=== PATIENT | male | born 1965 | race Caucasian/White ===

== ENCOUNTER → 2017-02-23 | Emergency (ER) | payer SELFPAY ==
[~2017-02-23] MED LIST: AMOXICILLIN500 MG PO; ANAPROX DS550 MG PO; ASPIRIN CHILDRE81 MG PO; CHOLESTEROL MED; CLARITIN10 MG PO; FLONASE ALLERG9.9 ML NAS; HYDR12.5C PO; HYDROCODONE BIT1 T11 PO; IBUPROFEN 30 M800 MG PO; KEFLEX500 MG PO; MEDROL DOSEPAK4 MG PO; METOPROLOL SR50 MG PO; MOTRIN800 MG PO; NKHM; Nizoral 2%15 GM PO; PREDNISONE10 M1 PO; PREDNISONE10 MG PO; PROVENTIL0.09 MG/AC IH; ROBITUSSIN AC 110 ML PO; SKELAXIN800 MG PO; TRAMADOL HYDROC50 MG PO; ULTRAM50 MG PO; ZITHROMAX Z PA250 MG PO
== END ==
LOC: ED 23:00
DX: S09.90XA Unspecified injury of head, initial encounter (principal); Z88.8 Allergy status to other drugs, medicaments and biological substances; Z79.899 Other long term (current) drug therapy; Z79.82 Long term (current) use of aspirin; X58.XXXA Exposure to other specified factors, initial encounter; Y93.89 Activity, other specified; Y92.89 Other specified places as the place of occurrence of the external cause; Y99.9 Unspecified external cause status

== ENCOUNTER 2017-05-25 20:43 | Emergency (ER) | payer OTHER, BC ==
[~2017-05-25] VITALS: Ht 172.7 cm; Wt 63.5 kg
== END 2017-05-25 22:21 | disposition home or self-care (01) ==
LOC: ED 20:43
DX: S40.022A Contusion of left upper arm, initial encounter (principal); F17.200 Nicotine dependence, unspecified, uncomplicated; Z79.82 Long term (current) use of aspirin; Z79.899 Other long term (current) drug therapy; Z88.8 Allergy status to other drugs, medicaments and biological substances; W22.8XXA Striking against or struck by other objects, initial encounter; Y93.89 Activity, other specified; Y92.89 Other specified places as the place of occurrence of the external cause; Y99.8 Other external cause status

== ENCOUNTER → 2017-06-19 | Outpatient (CLI) | payer BC ==
[2017-06-19 12:00] LABS: BASO # 0.1 10*3/uL (0.0-0.1); BASO % 0.7 % (0.0-1.0); EOS # 0.3 10*3/uL (0.0-0.4); EOS % 2.8 % (1.0-4.0); HEMATOCRIT 48.2 % (42.0-52.0); HEMOGLOBIN 16.9 g/dl (14.0-18.0); LYMPH # 2.2 10*3/uL (1.3-4.4); LYMPH % 17.8 % (27.0-41.0); MEAN CELL VOLUME 88.6 fl (80.0-94.0); MEAN CORPUSCULAR HGB 31.1 pg (27.0-31.0); MEAN CORPUSCULAR HGB CONC 35.1 g/dl (33.0-37.0); MEAN PLATELET VOLUME 9.4 fl (9.6-12.3); MONO # 0.8 10*3/uL (0.1-1.0); MONO % 6.7 % (3.0-9.0); NEUT # 8.8 10*3/uL (2.3-7.9); NEUT % 71.6 % (47.0-73.0); PLATELET COUNT AUTOMATED 218 10*3/uL (130-400); RED BLOOD COUNT 5.44 10*6/uL (4.50-5.90); RED CELL DISTRI WIDTH 12.4 % (0-14.5); WHITE BLOOD COUNT 12.3 10*3/uL (4.8-10.8)
[2017-06-19 12:29] LABS: ALBUMIN 4.1 gm/dl (3.1-4.5); ALKALINE PHOSPHATASE 101 U/L (45-117); BUN 14 mg/dl (7-24); CHLORIDE 100 mmol/L (98-107); CHOLESTEROL 198 mg/dL (<200); CREATININE 0.92 mg/dL (0.70-1.30); HDL CHOLESTEROL 43 mg/dl (40-60); LDL CHOLESTEROL 137 mg/dL (9-159); POTASSIUM 3.8 mmol/L (3.5-5.1); SGOT/AST 17 IU/L (3-35); SGPT/ALT 18 U/L (12-78); SODIUM 135 mmol/L (136-145); TOTAL PROTEIN 8.3 gm/dL (6.4-8.2); TRIGLYCERIDES 90 mg/dl (<150); VLDL CHOLESTEROL 18 mg/dL (6-40)
== END | disposition home or self-care (01) ==
LOC: LAB 00:29 → RESCLI 00:29
PROVIDERS: Internal Medicine Hospice and Palliative Medicine
DX: I10 Essential (primary) hypertension (principal); E78.5 Hyperlipidemia, unspecified

== ENCOUNTER 2017-08-06 23:33 | Emergency (ER) | payer BC ==
[~2017-08-06] VITALS: Ht 170.1 cm; Wt 52.6 kg
[2017-08-06] MEDS ORDERED: AVASTIN25 MG/1 ML IV (23:46)
[2017-08-07] MEDS ORDERED: NAPROSYN500 MG PO
[2017-08-07] MEDS ORDERED: IBU800 MG PO (01:50)
== END 2017-08-07 01:37 | disposition home or self-care (01) ==
LOC: ED 23:33
DX: R07.81 Pleurodynia (principal); F17.200 Nicotine dependence, unspecified, uncomplicated; G43.909 Migraine, unspecified, not intractable, without status migrainosus; Z88.8 Allergy status to other drugs, medicaments and biological substances

== ENCOUNTER 2018-01-12 19:39 | Emergency (ER) | payer BC ==
[~2018-01-12] VITALS: Ht 172.7 cm; Wt 56.7 kg
[~2018-01-12 19:39] MED LIST changes: +AVASTIN25 MG/1 ML IV; +IBU800 MG PO; +NAPROSYN500 MG PO
[2018-01-12 20:31] LABS: BASO # 0.1 10*3/uL (0.0-0.1); BASO % 0.8 % (0.0-1.0); EOS # 0.3 10*3/uL (0.0-0.4); EOS % 2.8 % (1.0-4.0); HEMOGLOBIN 17.3 g/dl (14.0-18.0); LYMPH # 2.5 10*3/uL (1.3-4.4); LYMPH % 23.8 % (27.0-41.0); MEAN CELL VOLUME 87.6 fl (80.0-94.0); MEAN CORPUSCULAR HGB 30.3 pg (27.0-31.0); MEAN CORPUSCULAR HGB CONC 34.6 g/dl (33.0-37.0); MEAN PLATELET VOLUME 9.6 fl (9.6-12.3); MONO # 0.7 10*3/uL (0.1-1.0); MONO % 6.8 % (3.0-9.0); NEUT # 6.8 10*3/uL (2.3-7.9); NEUT % 65.3 % (47.0-73.0); PLATELET COUNT AUTOMATED 225 10*3/uL (130-400); RED BLOOD COUNT 5.71 10*6/uL (4.50-5.90); RED CELL DISTRI WIDTH 12.5 % (0-14.5); WHITE BLOOD COUNT 10.5 10*3/uL (4.8-10.8)
[2018-01-12 20:41] LABS: ACT PARTIAL THROMBO TIME 22.5 SECONDS (20.8-31.5)
[2018-01-12 20:48] LABS: ALBUMIN 4.1 gm/dl (3.1-4.5); ALKALINE PHOSPHATASE 101 U/L (45-117); BUN 15 mg/dl (7-24); CHLORIDE 102 mmol/L (98-107); CREATININE 0.99 mg/dL (0.70-1.30); POTASSIUM 3.6 mmol/L (3.5-5.1); SGOT/AST 20 IU/L (3-35); SGPT/ALT 21 U/L (12-78); SODIUM 137 mmol/L (136-145); TOTAL PROTEIN 7.9 gm/dL (6.4-8.2)
[2018-01-12 20:49] LABS: ETHYL ALCOHOL < 3.0 mg/dl (<3); TROPONIN I < 0.015 ng/ml (<0.045)
[2018-01-12 20:58] LABS: BILIRUBIN NEGATIVE (NEGATIVE); BLOOD NEGATIVE (NEGATIVE); CLARITY CLEAR (CLEAR); COLOR YELLOW (YELLOW); GLUCOSE NEGATIVE (NEGATIVE); KETONE NEGATIVE (NEGATIVE); LEUKO ESTERASE NEGATIVE (NEGATIVE); NITRITE NEGATIVE (NEGATIVE); PH 5.5 (5.0-9.0); SPECIFIC GRAVITY <= 1.005 (1.005-1.030); UROBILINOGEN 0.2 E.U./dl (0.2-1.0)
[2018-01-12 21:07] LABS: HYALINE CAST 0-2
[2018-01-12 21:08] LABS: BACTERIA TRACE; EPITHELIAL CELLS 0-2; URINE AMPHETAMINES < 1000 (1000ng/ml); URINE BARBITURATES < 200 (200ng/ml); URINE BENZODIAZEPINES < 200 (200ng/ml); URINE CANNABINOIDS (THC) < 50 (50ng/ml); URINE COCAINE < 300 (300ng/ml); URINE METHADONE < 300 (300ng/ml); URINE OPIATES < 300 (300ng/ml)
[2018-01-12 21:09] LABS: URINE PHENCYCLIDINE < 25 (25ng/ml)
[2018-01-12] MEDS ORDERED: AUGMENTIN 875875 MG PO (21:24)
== END 2018-01-12 21:35 | disposition home or self-care (01) ==
LOC: ED 19:39
PROVIDERS: Emergency Medicine Emergency Medical Services
DX: G45.9 Transient cerebral ischemic attack, unspecified (principal); Z88.8 Allergy status to other drugs, medicaments and biological substances; Z79.899 Other long term (current) drug therapy; Z86.73 Personal history of transient ischemic attack (TIA), and cerebral infarction without residual deficits

== ENCOUNTER → 2018-01-14 | Outpatient (CLI) | payer BC ==
[~2018-01-14] MED LIST changes: +AUGMENTIN 875875 MG PO
== END | disposition home or self-care (01) ==
LOC: RESCLI 02:42
DX: I10 Essential (primary) hypertension (principal); R63.6 Underweight; I63.50 Cerebral infarction due to unspecified occlusion or stenosis of unspecified cerebral artery; K21.9 Gastro-esophageal reflux disease without esophagitis; F17.200 Nicotine dependence, unspecified, uncomplicated; Z71.6 Tobacco abuse counseling

== ENCOUNTER → 2018-04-15 | Outpatient (CLI) | payer BC | LOC: RESCLI 03:21 | DX: E78.5 Hyperlipidemia, unspecified (principal); K21.9 Gastro-esophageal reflux disease without esophagitis; E78.00 Pure hypercholesterolemia, unspecified; R63.6 Underweight; R09.81 Nasal congestion; Q15.9 Congenital malformation of eye, unspecified; F17.200 Nicotine dependence, unspecified, uncomplicated; Z53.20 Procedure and treatment not carried out because of patient's decision for unspecified reasons; Z71.6 Tobacco abuse counseling; Z88.8 Allergy status to other drugs, medicaments and biological substances ==

== ENCOUNTER → 2018-07-17 | Outpatient (CLI) | payer BC | END | disposition home or self-care (01) | LOC: RESCLI 03:30 | DX: E78.5 Hyperlipidemia, unspecified (principal); J32.0 Chronic maxillary sinusitis; F17.200 Nicotine dependence, unspecified, uncomplicated; R63.6 Underweight; R09.81 Nasal congestion; Z71.6 Tobacco abuse counseling; Z88.8 Allergy status to other drugs, medicaments and biological substances; Z53.20 Procedure and treatment not carried out because of patient's decision for unspecified reasons ==

== ENCOUNTER → 2018-07-29 | Outpatient (CLI) | payer BC | END | disposition home or self-care (01) | LOC: RESCLI 03:21 | DX: Z00.01 Encounter for general adult medical examination with abnormal findings (principal); J32.9 Chronic sinusitis, unspecified; E78.5 Hyperlipidemia, unspecified; I63.9 Cerebral infarction, unspecified; F17.200 Nicotine dependence, unspecified, uncomplicated; R63.6 Underweight; Z79.82 Long term (current) use of aspirin; Z79.899 Other long term (current) drug therapy; Z88.8 Allergy status to other drugs, medicaments and biological substances ==

== ENCOUNTER 2018-10-28 15:03 | Inpatient (IN) | payer BC ==
[~2018-10-28] VITALS: Ht 170.1 cm; Wt 59.7 kg
--- NOTE | ~2018-10-28 | CON ---
[place], [place] REPORT OF CONSULTATION NAME: LEROY LEWIS UNIT #: [id number] ROOM: 528 DOCTOR: IMER LIU MD BIRTHDATE: [birth year] DOS: 10/29/2018 PULMONARY CONSULTATION, EVALUATION AND MANAGEMENT REASON FOR CONSULTATION: The consultation requested for the assessment of pulmonary nodule. The patient has abnormal CT scan of the chest finding and shortness of breath and other symptoms. HISTORY OF PRESENT ILLNESS: A 53-year-old male per patient was admitted under the hospitalist service on 10/28/2017. The consultation today 10/29/2017. The patient came into the Emergency Room, the patient has reporting symptoms of getting progressive shortness breath for the past 3 days with increased cough with the sputum expectoration described yellowish mucus at time. He has been also complaining of symptoms of wheezing as well. Denies symptoms of chest pain. There were no symptoms of hemoptysis. The patient has been noted gradually worsened requiring assessment in the Emergency Room where I have been assessed and admitted to the hospital for medical management, currently noted acute pneumonia on the chest x-ray and exacerbation of COPD. REVIEW OF SYSTEMS: CONSTITUTIONAL: Fatigue and tiredness reported. Denies symptoms of fever or chills. EYES: Denies burning, redness, or tenderness. EARS, NOSE, AND THROAT: Denies sore throat, hoarseness, epistaxis, or earache. CARDIOVASCULAR: No anginal pain, edema, or pain in lower extremities or palpitations. GASTROINTESTINAL: Dysphagia, nausea, vomiting, diarrhea, abdominal pain, hematemesis, melena, hematochezia. Stated that he has low BMI and has been told by several doctors in the last few years that he needs to gain some weight. GENITOURINARY: No dysuria, suprapubic pain, hematuria. MUSCULOSKELETAL: Denies any joint pain deformities or redness. SKIN: Denied lesions or rashes. CENTRAL NERVOUS SYSTEM: Dizziness, diplopia, headache or syncopal episodes. Remaining systems were reviewed. They were noted all negative. PAST MEDICAL HISTORY: 1. Essential hypertension. 2. History of past stroke without residual deficit. 3. Hyperlipidemia. 4. Migrainous headache. 5. TIA. 6. Nicotine dependence. SOCIAL HISTORY: The patient reported he lives at home. 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 Denies any history of alcohol or illicit drugs. Tobacco use was known for this patient at a younger age, a pack of cigarettes per day and in the past 3 months decreased this tobacco use to about half a pack of cigarettes per day. He is and has 3 children. [place], [place] REPORT OF CONSULTATION NAME: LEROY LEWIS UNIT #: [id number] ROOM: 528 DOCTOR: ROCHELLE TIWARI MD,IMER BIRTHDATE: [birth year] FAMILY HISTORY: The patient not remembered by the patient. HOME MEDICATIONS: Recent use of Augmentin, aspirin. The patient was also listed as a medication Avastin, which has not been taken by the patient most likely accidentally. DRUG ALLERGIES: NOTED ALLERGY TO THE LISINOPRIL for patient causing weakness of the lower extremities. PHYSICAL EXAMINATION: GENERAL: This is a 53-year-old white male who has been currently noted awake and alert this morning of assessment. Height of 5 feet 7 inches, weight of 131 pounds, BMI 20.6, does not show any acute distress this morning. VITAL SIGNS: Normal temperature, respiratory rate 18-20, heart rate of 114-109. Blood pressure 102/60 to 137/79. Pulse oxygen saturation was recorded 2 liters nasal cannula 96% saturation. HEENT: Examination shows head was atraumatic. Eyes nonicterus. NECK: Supple. CARDIOVASCULAR: S1, S2 audible. LUNGS: General reduction in the breath sounds. The patient noted without any wheezing or crackles. ABDOMEN: Soft, nontender and flat. EXTREMITIES: No edema. MUSCULOSKELETAL: Cord deformity. SKIN: Noted some dryness of the skin. CENTRAL NERVOUS SYSTEM: Cranial nerves 2-12 intact. There were no focal deficits. LABORATORY DATA: The patient's CMP that was done yesterday noted normal BUN and creatinine, glucose 110. CBC yesterday, WBC count 12.6, hemoglobin and hematocrit normal, platelet count were normal. The BMP this morning, glucose 174, BUN and creatinine was normal. Phosphorus 2.3, which was low. CBC this morning was 11.1, platelet count were normal. Chest x-ray shows hyperinflated lung changes of COPD, increased interstitial marking and basilar infiltration was suspected. CT scan of the chest that was done yesterday, patient's CT protocol does not show any evidence of pulmonary embolism. Significant normal finding noted. Personal review of the CT scan of the chest shows basilar area of infiltration, which was noted in the lungs. An 8 mm nodule in the lateral subsegment of the right middle lobe was also noted close to the pleural surface. In addition to that, the patient noted with changes of some cystic lesions in combination of emphysema, predominance of centrilobular emphysema changes noted in the lower portion of the lungs. Haziness lungs were noted bilaterally, possibly interstitial lung disease would be considered as well. IMPRESSION: 1. The patient will be currently admitted to the hospital noted with acute bilateral lower lobe pneumonia. Question of aspiration. 2. Interstitial lung disease cannot be completely excluded with consideration of pulmonary Langerhans cell histiocytosis with the CT appearance. [place], [place] REPORT OF CONSULTATION NAME: LEROY LEWIS UNIT #: [id number] ROOM: 528 DOCTOR: IMER LIU MD BIRTHDATE: [birth year] 3. Basal emphysema, rule out alpha-1 antitrypsin deficiency as well. 4. The patient with chronic nicotine dependence as well. 5. Low BMI, which has been noted chronically. 6. Solitary pulmonary nodule, possibility of early lung malignancy remains in consideration. 7. History of long-term tobacco use. PLAN OF MANAGEMENT: The patient would be continued on oxygen supplementation, antibiotic, community-acquired aspiration. Nicotine supplementation to overcome nicotine withdrawal. Bronchodilator to be continued. No need of steroids at this time. If the patient develops increased wheezing or worsening, certainly the steroids could be added to the treatment. Follow up with the chest x-ray. Outpatient assessment for possibility of interstitial lung disease and also alpha-1 antitrypsin deficiency. Solitary nodule needs to be further assessed for this patient with close monitoring CT scan. Followup CT scan to be done in about 3 months' when the resolution of acute abnormality occurs for the lung nodule monitoring. Further care treatment changes will be made based on the progression of the illness. IMER BYRD MD CM:CONSTR:REPORT OF CONSULTATION 1310 10/29/18 1638 interface
--- NOTE | ~2018-10-28 | PR ---
[place], [place] PROGRESS NOTE NAME: LEROY LEWIS UNIT #: [id number] ROOM: 528 DOCTOR: ROCHELLE TIWARI MD,IMER BIRTHDATE: [birth year] DOS: 10/30/2018 SUBJECTIVE: He has reported reduction of the cough, but there was no sputum expectoration. Denies symptoms of chest pain, fever or chills. Continue antibiotic and bronchodilators. Denies symptoms of nausea, vomiting or any abdominal pain. OBJECTIVE: VITAL SIGNS: Normal temperature, respiratory rate 18, heart rate 98, and blood pressure 110/60. The pulse oxygen saturation on 2 liters nasal cannula 95% saturation. HEENT: Examination shows head was atraumatic. Eyes nonicterus. NECK: Supple. CARDIOVASCULAR: S1, S2 audible. LUNGS: General reduction in the breath sounds without any wheeze or crackles. ABDOMEN: Soft and nontender. Bowel sounds present. EXTREMITIES: No edema. IMPRESSION: The patient who has been currently noted with bilateral acute pneumonia with chronic obstructive pulmonary disease and nicotine dependence. PLAN OF MANAGEMENT: Repeat chest x-ray in the morning. Continue antibiotics, bronchodilator therapy, and plan of management. Depending upon the chest x-ray assessment for the patient improvement, discharge planning could be done. The patient was hoping for discharge today. IMER BYRD MD CM:PNTRANS [id number] IMER TIWARI MD 10/30/18 1220 interface
--- NOTE | ~2018-10-28 | PR ---
[place], [place] PROGRESS NOTE NAME: LEROY LEWIS UNIT #: [id number] ROOM: 528 DOCTOR: IMER LIU MD BIRTHDATE: [birth year] DOS: 10/31/2018 SUBJECTIVE: The patient was noted comfortable at this time without any acute distress. He has not been reporting any symptoms of shortness of breath this morning, wheezing. Denies symptoms of chest pain. He does have a cough with chest congestion without any sputum expectoration. OBJECTIVE: VITAL SIGNS: Normal temperature, respiratory rate 16, heart rate 106, blood pressure 140/67. Pulse oxygen saturation recorded as 91% saturation on room air. HEENT: Examination shows head was atraumatic. Eyes nonicterus. NECK: Supple. CARDIOVASCULAR: S1, S2 audible. LUNGS: The patient was noted without any wheezing or crackles at the present time. Breaths are noted mildly diminished bilaterally. ABDOMEN: Soft, flat, nontender. EXTREMITIES: No acute change. LABORATORY DATA: CBC: WBC count 14.8. Other CBC was normal. BMP was recorded as normal BUN and creatinine. Remaining electrolytes were normal. Chest x-ray done this morning was assessed and noted with pulmonary infiltration, noted changes of severe emphysema. IMPRESSION: 1. The patient with resolving acute pneumonia clinically at this time. 2. Pulmonary nodule noted on the CT scan chest. 3. Severe panlobular emphysema. PLAN OF THERAPY: Consideration for home discharge, oxygen sat prior to discharge, abstinence of tobacco use. Outpatient assessment in the office should be established for assessment of the pulmonary nodule, other pulmonary disease. The patient understands that and stated that he will be established upon after discharge from the hospital. [place], [place] PROGRESS NOTE NAME: LEROY LEWIS UNIT #: [id number] ROOM: 528 DOCTOR: IMER LIU MD BIRTHDATE: [birth year] IMER BYRD MD CM:PNTRANS [id number] IMER TIWARI MD 11/12/18 0841 interface
[2018-10-28 15:05] VITALS: BP 135/80
[2018-10-28 15:16] VITALS: BP 141/86
[2018-10-28 15:46] LABS: BASO # 0.1 10*3/uL (0.0-0.1); BASO % 0.6 % (0.0-1.0); EOS # 0.2 10*3/uL (0.0-0.4); EOS % 1.3 % (1.0-4.0); HEMATOCRIT 46.4 % (42.0-52.0); HEMOGLOBIN 15.8 g/dl (14.0-18.0); LYMPH # 1.8 10*3/uL (1.3-4.4); LYMPH % 14.2 % (27.0-41.0); MEAN CELL VOLUME 88.5 fl (80.0-94.0); MEAN CORPUSCULAR HGB 30.2 pg (27.0-31.0); MEAN CORPUSCULAR HGB CONC 34.1 g/dl (33.0-37.0); MEAN PLATELET VOLUME 9.4 fl (9.6-12.3); MONO # 1.1 10*3/uL (0.1-1.0); MONO % 8.3 % (3.0-9.0); NEUT # 9.5 10*3/uL (2.3-7.9); PLATELET COUNT AUTOMATED 310 10*3/uL (130-400); RED BLOOD COUNT 5.24 10*6/uL (4.50-5.90); RED CELL DISTRI WIDTH 12.6 % (0-14.5); WHITE BLOOD COUNT 12.6 10*3/uL (4.8-10.8)
[2018-10-28 16:03] LABS: ALBUMIN 3.3 gm/dl (3.1-4.5); ALKALINE PHOSPHATASE 153 U/L (45-117); BUN 17 mg/dl (7-24); CHLORIDE 102 mmol/L (98-107); CREATININE 0.78 mg/dL (0.70-1.30); POTASSIUM 3.6 mmol/L (3.5-5.1); SGOT/AST 23 IU/L (3-35); SGPT/ALT 17 U/L (12-78); SODIUM 136 mmol/L (136-145); TOTAL PROTEIN 7.2 gm/dL (6.4-8.2)
[2018-10-28 16:34] VITALS: BP 130/78
--- NOTE | 2018-10-28 16:34 | NUR ---
DINNER TRAY WAS ORDERED FOR PT HE IS RESTING IN BED CALL LIGHT IN REACH VOICES NO COMPLAINTS
[2018-10-28 17:37] VITALS: BP 137/79
--- NOTE | 2018-10-28 17:37 | NUR ---
Time: 1736 A 53 year old MALE admitted to 5E under services of OTTO CELAYA DO Pt. arrived via bed from ER. Chief complaint: SOB, COUGH X1 MONTH. HEALTHY LIFESTYLES GUIDELINE REVIEWED. BELONGINGS ACCOUNTED FOR. PT AND SON ORIENTED TO ROOM. RESPIRATIONS ARE EASY AND UNLABORED ON 2L NC. HE DENIES SOB AT THIS TIME. SEE ADMISSION ASSESSMENT. TRACIE LO
--- NOTE | 2018-10-28 17:46 | NUR ---
IV ANTIOBIOTICS INFUSING WHEN PT WAS TAKEN TO THE FLOOR
[2018-10-28] MEDS ORDERED: LIPITOR80 MG PO (19:40)
--- NOTE | 2018-10-28 19:41 | NUR ---
DR. LONG NOTIFIED MED REC IS UP TO DATE.
--- NOTE | 2018-10-28 19:42 | NUR ---
PATIENT REQUESTING NICOTROL INHALER AT THIS TIME. DR LONG CALLED. WAITING FOR NEW ORDERS.
[2018-10-28 20:00] VITALS: BP 129/63; BP 142/68
--- NOTE | 2018-10-28 23:30 | NUR ---
PATIENT COMPLAINING THAT NICOTINE INHALER IS NOT WORKING FOR HIM. THIS RN ASKED IF HE WOULD LIKE NICTOTINE GUM OR PATCH AND HE REFUSED BOTH. HE IS UPSET THAT HE IS UNABLE TO GO OUT AND SMOKE. REINFORCED THAT HE CAN NOT LEAVE THE HOSPITAL TO SMOKE. WILL MONITOR
[2018-10-29] VITALS: BP 111/56
[2018-10-29 07:06] LABS: BUN 15 mg/dl (7-24); CHLORIDE 110 mmol/L (98-107); CHOLESTEROL 103 mg/dL (<200); CREATININE 0.81 mg/dL (0.70-1.30); HDL CHOLESTEROL 33 mg/dl (40-60); LDL CHOLESTEROL 60 mg/dL (9-159); PHOSPHOROUS 2.3 mg/dL (2.5-4.9); POTASSIUM 3.7 mmol/L (3.5-5.1); SODIUM 141 mmol/L (136-145); TRIGLYCERIDES 49 mg/dl (<150); VLDL CHOLESTEROL 10 mg/dL (6-40)
[2018-10-29 07:13] LABS: THYROID STIM HORMONE (HS) 0.286 uIU/ml (0.358-4.75)
[2018-10-29 07:15] LABS: BASO % 0.2 % (0.0-1.0); HEMATOCRIT 40.7 % (42.0-52.0); LYMPH # 0.8 10*3/uL (1.3-4.4); LYMPH % 7.2 % (27.0-41.0); MEAN CORPUSCULAR HGB 29.9 pg (27.0-31.0); MEAN CORPUSCULAR HGB CONC 33.2 g/dl (33.0-37.0); MEAN PLATELET VOLUME 10.1 fl (9.6-12.3); MONO # 0.5 10*3/uL (0.1-1.0); MONO % 4.5 % (3.0-9.0); NEUT # 9.7 10*3/uL (2.3-7.9); NEUT % 87.5 % (47.0-73.0); PLATELET COUNT AUTOMATED 282 10*3/uL (130-400); RED BLOOD COUNT 4.52 10*6/uL (4.50-5.90); RED CELL DISTRI WIDTH 12.7 % (0-14.5); WHITE BLOOD COUNT 11.1 10*3/uL (4.8-10.8)
[2018-10-29 07:22] LABS: HEMOGLOBIN 13.5 g/dl (14.0-18.0)
[2018-10-29 07:40] VITALS: BP 102/60
--- NOTE | 2018-10-29 08:47 | NUR ---
DR. BYRD AWARE OF CONSULT AND IN TO SEE PATIENT.
--- NOTE | 2018-10-29 11:11 | NUR ---
Tugger Operator in to talk to patient. Patient states lives at HOME with . There are NO steps in the home. Physician: [facility] Pharmacy: [facility] health services: NONE Patient's level of ADLs: INDEPENDENT Patient has working utilities: YES DME: NONE Follow-up physician's appointment after d/c: WILL BE MADE BY HOSPITALIST NURSE DIRECTOR ON DISCHARGE Does patient want to access PORTAL?: NO Discharge plan PT LIVES AT HOME WITH HIS AND IS INDEPENDENT IN CARE. DENIES HOME NEEDS AND CAN BE DISCHARGED TO HOME WHEN MEDICALLY STABLE. WILL CONTINUE TO FOLLOW.. INDRA TUCKER
[2018-10-29 12:00] VITALS: BP 103/55
[2018-10-29 16:00] VITALS: BP 119/55
[2018-10-29 20:00] VITALS: BP 109/60
[2018-10-30] VITALS: BP 110/60
[2018-10-30 06:31] LABS: BASO # 0.1 10*3/uL (0.0-0.1); BASO % 0.5 % (0.0-1.0); EOS # 0.2 10*3/uL (0.0-0.4); EOS % 0.9 % (1.0-4.0); HEMATOCRIT 41.5 % (42.0-52.0); LYMPH # 2.3 10*3/uL (1.3-4.4); LYMPH % 13.3 % (27.0-41.0); MEAN CORPUSCULAR HGB 30.7 pg (27.0-31.0); MEAN CORPUSCULAR HGB CONC 33.7 g/dl (33.0-37.0); MEAN PLATELET VOLUME 9.6 fl (9.6-12.3); MONO # 0.9 10*3/uL (0.1-1.0); MONO % 5.3 % (3.0-9.0); NEUT # 13.4 10*3/uL (2.3-7.9); NEUT % 79.2 % (47.0-73.0); PLATELET COUNT AUTOMATED 303 10*3/uL (130-400); RED BLOOD COUNT 4.56 10*6/uL (4.50-5.90); RED CELL DISTRI WIDTH 13.2 % (0-14.5)
[2018-10-30 07:01] LABS: BUN 19 mg/dl (7-24); CHLORIDE 108 mmol/L (98-107); CREATININE 0.71 mg/dL (0.70-1.30); POTASSIUM 4.4 mmol/L (3.5-5.1); SODIUM 141 mmol/L (136-145)
[2018-10-30 09:03] VITALS: BP 116/70
--- NOTE | 2018-10-30 11:18 | NUR ---
CONTINUE TO DENY HOME NEEDS. CAN BE DISCHARGED TO HOME WHEN MEDICALLY STABLE.
[2018-10-30 12:00] VITALS: BP 118/73
[2018-10-30 16:00] VITALS: BP 98/67
[2018-10-30 20:00] VITALS: BP 96/60
--- NOTE | 2018-10-30 20:00 | NUR ---
INTO SEE PT. ASESSED. PT HAS NO COMPLAINTS
[2018-10-31] VITALS: BP 111/77
--- NOTE | 2018-10-31 | NUR ---
INTO SEE PT. PT HAS NO COMPLAINTS AT THIS TIME. WILL CONTINUE TO [place]
--- NOTE | 2018-10-31 05:58 | NUR ---
INTO SEE PT. PT HAS NO COMPLAINTS AT THIS TIME.
[2018-10-31 06:52] LABS: BASO # 0.1 10*3/uL (0.0-0.1); BASO % 0.6 % (0.0-1.0); EOS # 0.3 10*3/uL (0.0-0.4); EOS % 2.3 % (1.0-4.0); HEMATOCRIT 45.1 % (42.0-52.0); LYMPH # 1.9 10*3/uL (1.3-4.4); LYMPH % 12.7 % (27.0-41.0); MEAN CELL VOLUME 90.2 fl (80.0-94.0); MEAN CORPUSCULAR HGB CONC 33.3 g/dl (33.0-37.0); MEAN PLATELET VOLUME 9.6 fl (9.6-12.3); MONO % 6.9 % (3.0-9.0); NEUT # 11.3 10*3/uL (2.3-7.9); NEUT % 76.4 % (47.0-73.0); PLATELET COUNT AUTOMATED 326 10*3/uL (130-400); RED CELL DISTRI WIDTH 13.1 % (0-14.5); WHITE BLOOD COUNT 14.8 10*3/uL (4.8-10.8)
[2018-10-31 07:07] LABS: BUN 17 mg/dl (7-24); CHLORIDE 102 mmol/L (98-107); CREATININE 0.82 mg/dL (0.70-1.30); SODIUM 137 mmol/L (136-145)
[2018-10-31 08:00] VITALS: BP 104/67
[2018-10-31] MEDS ORDERED: ZITHROMAX250 MG PO (10:14)
[2018-10-31] MEDS ORDERED: VITAMIN D32000 UNI1 PO (10:14)
--- NOTE | 2018-10-31 11:50 | NUR ---
Discharge instructions reviewed with patient/family. Patient receptive and verbalizes understanding. Follow-up care arranged. Written instructions given to patient/family. PATIENT AMBULATED FROM FLOOR. NO S/S OF DISTRESS. LARRY CA
== END 2018-10-31 12:00 | disposition home or self-care (01) | DRG 871 ==
LOC: ED 15:03 → EDHOLD 16:59 → 5E 16:59
PROVIDERS: Nurse Practitioner Family; Student in an Organized Health Care Education/Training Program; ADMIT Internal Medicine
DX: A41.9 Sepsis, unspecified organism (principal); J18.1 Lobar pneumonia, unspecified organism; J44.0 Chronic obstructive pulmonary disease with (acute) lower respiratory infection; G43.909 Migraine, unspecified, not intractable, without status migrainosus; R73.9 Hyperglycemia, unspecified; F17.200 Nicotine dependence, unspecified, uncomplicated; E78.5 Hyperlipidemia, unspecified; J43.1 Panlobular emphysema; I10 Essential (primary) hypertension; Z88.8 Allergy status to other drugs, medicaments and biological substances; Z82.49 Family history of ischemic heart disease and other diseases of the circulatory system; Z86.73 Personal history of transient ischemic attack (TIA), and cerebral infarction without residual deficits; Z79.82 Long term (current) use of aspirin; Z79.899 Other long term (current) drug therapy; Z71.6 Tobacco abuse counseling

== ENCOUNTER → 2018-11-06 | Outpatient (CLI) | payer BC ==
[~2018-11-06] MED LIST changes: +LIPITOR80 MG PO; +VITAMIN D32000 UNI1 PO; +ZITHROMAX250 MG PO
--- NOTE | 2018-11-06 10:45 | NUR ---
HOME O2 ASSESSMENT: PRE BP: 130/70, HR 93, RR 18, PULSE OX 96% ON ROOM AIR AT REST. AMBULATED PATIENT APPROX. 25 FT, PULSE OX DECREASED TO 83% ON ROOM AIR WITH AMBULATION. PLACED 3 L/M ON PATIENT, PULSE OX >94% WHILE AMBULATING. POST BP: 134/74, HR 96, RR 20, PULSE OX 98% ON 3 L/M AT REST.
== END | disposition home or self-care (01) ==
LOC: RESCLI 03:14
DX: E03.9 Hypothyroidism, unspecified (principal); J18.1 Lobar pneumonia, unspecified organism; J43.9 Emphysema, unspecified; R06.02 Shortness of breath; R63.6 Underweight; R05 Cough; I10 Essential (primary) hypertension; Z79.82 Long term (current) use of aspirin; Z79.899 Other long term (current) drug therapy; Z88.8 Allergy status to other drugs, medicaments and biological substances

== ENCOUNTER → 2018-11-12 | Outpatient (CLI) | payer BC | END | disposition home or self-care (01) | LOC: RESCLI 00:25 | DX: Z23 Encounter for immunization (principal); E78.5 Hyperlipidemia, unspecified; I63.9 Cerebral infarction, unspecified; J43.9 Emphysema, unspecified; E55.9 Vitamin D deficiency, unspecified; I10 Essential (primary) hypertension; K21.9 Gastro-esophageal reflux disease without esophagitis; F17.210 Nicotine dependence, cigarettes, uncomplicated; Z88.8 Allergy status to other drugs, medicaments and biological substances; Z99.81 Dependence on supplemental oxygen; Z79.82 Long term (current) use of aspirin; Z79.899 Other long term (current) drug therapy ==

== ENCOUNTER → 2018-11-28 | Outpatient (CLI) | payer BC | END | disposition home or self-care (01) | LOC: RESCLI 02:00 | DX: K21.9 Gastro-esophageal reflux disease without esophagitis (principal); J43.9 Emphysema, unspecified; E78.5 Hyperlipidemia, unspecified; E55.9 Vitamin D deficiency, unspecified; E46 Unspecified protein-calorie malnutrition; R11.0 Nausea; Z99.81 Dependence on supplemental oxygen; Z79.82 Long term (current) use of aspirin; Z79.899 Other long term (current) drug therapy; Z88.8 Allergy status to other drugs, medicaments and biological substances ==

== ENCOUNTER → 2018-12-04 | Outpatient (CLI) | payer BC ==
[2018-12-05 08:10] LABS: ALPHA-1-ANTITRYPSIN, SERUM 150 mg/dL (90-200)
== END | disposition home or self-care (01) ==
LOC: LAB 12:39
PROVIDERS: Internal Medicine Critical Care Medicine
DX: J44.9 Chronic obstructive pulmonary disease, unspecified (principal)

== ENCOUNTER → 2018-12-17 | Outpatient (CLI) | payer BC | END | disposition home or self-care (01) | LOC: RESCLI 02:35 | DX: E78.5 Hyperlipidemia, unspecified (principal); I63.9 Cerebral infarction, unspecified; J43.9 Emphysema, unspecified; R00.0 Tachycardia, unspecified; F17.200 Nicotine dependence, unspecified, uncomplicated; Z79.82 Long term (current) use of aspirin; Z79.899 Other long term (current) drug therapy; Z88.8 Allergy status to other drugs, medicaments and biological substances ==

== ENCOUNTER → 2019-02-06 | Outpatient (CLI) | payer BC | END | disposition home or self-care (01) | LOC: CT 09:00 | DX: J43.9 Emphysema, unspecified (principal); J84.10 Pulmonary fibrosis, unspecified ==

== ENCOUNTER → 2019-02-24 | Outpatient (CLI) | payer BC | END | disposition home or self-care (01) | LOC: RESCLI 01:03 | DX: I63.9 Cerebral infarction, unspecified (principal); J43.9 Emphysema, unspecified; E78.5 Hyperlipidemia, unspecified; I10 Essential (primary) hypertension; K21.9 Gastro-esophageal reflux disease without esophagitis; F17.200 Nicotine dependence, unspecified, uncomplicated; Z99.81 Dependence on supplemental oxygen; Z79.82 Long term (current) use of aspirin; Z79.899 Other long term (current) drug therapy ==

== ENCOUNTER → 2019-05-05 | Outpatient (CLI) | payer SELFPAY | END | disposition home or self-care (01) | LOC: RESCLI 01:00 | DX: I63.9 Cerebral infarction, unspecified (principal); J43.9 Emphysema, unspecified; E78.5 Hyperlipidemia, unspecified; Z99.81 Dependence on supplemental oxygen; Z79.899 Other long term (current) drug therapy; Z87.891 Personal history of nicotine dependence ==

== ENCOUNTER 2019-07-07 23:20 | Emergency (ER) | payer OTHER ==
[~2019-07-07] VITALS: Ht 171.4 cm; Wt 59.0 kg
[2019-07-07] MEDS ORDERED: LOTRIMIN 1%15 GM PO (23:38)
== END 2019-07-07 23:54 | disposition home or self-care (01) ==
LOC: ED 23:20
DX: B35.9 Dermatophytosis, unspecified (principal); J44.9 Chronic obstructive pulmonary disease, unspecified; F17.200 Nicotine dependence, unspecified, uncomplicated; Z88.8 Allergy status to other drugs, medicaments and biological substances; Z79.899 Other long term (current) drug therapy; Z79.82 Long term (current) use of aspirin; Z99.81 Dependence on supplemental oxygen

== ENCOUNTER → 2019-08-20 | Outpatient (CLI) | payer OTHER ==
[~2019-08-20] MED LIST changes: +LOTRIMIN 1%15 GM PO
== END | disposition home or self-care (01) ==
LOC: RESCLI 01:14
DX: I63.9 Cerebral infarction, unspecified (principal); J43.9 Emphysema, unspecified; E78.5 Hyperlipidemia, unspecified; Z99.81 Dependence on supplemental oxygen; Z79.899 Other long term (current) drug therapy

== ENCOUNTER → 2019-08-24 | Outpatient (CLI) | payer OTHER | END | disposition home or self-care (01) | LOC: CT 09:00 | DX: R91.1 Solitary pulmonary nodule (principal) ==

== ENCOUNTER → 2019-12-02 | Outpatient (CLI) | payer OTHER | END | disposition home or self-care (01) | LOC: RESCLI 01:04 | DX: I63.9 Cerebral infarction, unspecified (principal); J43.9 Emphysema, unspecified; E78.5 Hyperlipidemia, unspecified; Z99.81 Dependence on supplemental oxygen; Z79.899 Other long term (current) drug therapy; Z88.8 Allergy status to other drugs, medicaments and biological substances ==

== ENCOUNTER 2020-01-21 15:33 | Emergency (ER) | payer OTHER ==
[~2020-01-21] VITALS: Ht 170.1 cm; Wt 70.8 kg
[2020-01-21] MEDS ORDERED: NYSTATIN CREAM15 GM T (16:34)
[2020-01-21] MEDS ORDERED: ATARAX,VISTARIL10 MG PO (16:34)
== END 2020-01-21 17:00 | disposition home or self-care (01) ==
LOC: ED 15:33
DX: Z88.8 Allergy status to other drugs, medicaments and biological substances (principal); Z79.899 Other long term (current) drug therapy; B35.4 Tinea corporis; I10 Essential (primary) hypertension; E78.00 Pure hypercholesterolemia, unspecified; F17.200 Nicotine dependence, unspecified, uncomplicated

== ENCOUNTER → 2020-03-02 | Outpatient (CLI) | payer OTHER ==
[~2020-03-02] MED LIST changes: +ATARAX,VISTARIL10 MG PO; +NYSTATIN CREAM15 GM T
== END | disposition home or self-care (01) ==
LOC: CT 02-24 10:00
DX: J43.9 Emphysema, unspecified (principal); R91.1 Solitary pulmonary nodule

== ENCOUNTER → 2020-07-27 | Outpatient (CLI) | payer OTHER | END | disposition home or self-care (01) | LOC: RESCLI 01:15 | PROVIDERS: ATTEND Internal Medicine Nephrology | DX: Z23 Encounter for immunization (principal); I63.9 Cerebral infarction, unspecified; J43.9 Emphysema, unspecified; E78.5 Hyperlipidemia, unspecified; E55.9 Vitamin D deficiency, unspecified; B35.9 Dermatophytosis, unspecified; Z99.81 Dependence on supplemental oxygen ==

== ENCOUNTER → 2021-02-23 | Outpatient (CLI) | payer OTHER | END | disposition home or self-care (01) | LOC: RESCLI 00:23 | PROVIDERS: ATTEND Internal Medicine | DX: E78.5 Hyperlipidemia, unspecified (principal); J43.9 Emphysema, unspecified; I63.9 Cerebral infarction, unspecified; E55.9 Vitamin D deficiency, unspecified; K21.9 Gastro-esophageal reflux disease without esophagitis; Z79.82 Long term (current) use of aspirin; Z79.899 Other long term (current) drug therapy; Z98.890 Other specified postprocedural states; Z87.891 Personal history of nicotine dependence; Z88.8 Allergy status to other drugs, medicaments and biological substances ==

== ENCOUNTER 2021-05-11 16:33 | Emergency (ER) | payer OTHER ==
[~2021-05-11] VITALS: Wt 74.4 kg
[2021-05-11] MEDS ORDERED: AUGMENTIN 875-875 MG PO (16:55)
== END 2021-05-11 17:15 | disposition home or self-care (01) ==
LOC: ED 16:33
DX: S01.85XA Open bite of other part of head, initial encounter (principal); S11.95XA Open bite of unspecified part of neck, initial encounter; F17.200 Nicotine dependence, unspecified, uncomplicated; Z88.8 Allergy status to other drugs, medicaments and biological substances; Z79.899 Other long term (current) drug therapy; Z79.2 Long term (current) use of antibiotics; Z79.82 Long term (current) use of aspirin; W54.0XXA Bitten by dog, initial encounter; Y93.89 Activity, other specified; Y92.89 Other specified places as the place of occurrence of the external cause; Y99.8 Other external cause status

== ENCOUNTER → 2021-07-25 | Outpatient (CLI) | payer OTHER ==
[~2021-07-25] MED LIST changes: +AUGMENTIN 875-875 MG PO
== END | disposition home or self-care (01) ==
LOC: RESCLI 00:28
PROVIDERS: ATTEND Internal Medicine
DX: E78.5 Hyperlipidemia, unspecified (principal); Z12.11 Encounter for screening for malignant neoplasm of colon; J43.9 Emphysema, unspecified; I10 Essential (primary) hypertension; I63.9 Cerebral infarction, unspecified; Z79.899 Other long term (current) drug therapy; Z88.8 Allergy status to other drugs, medicaments and biological substances

== ENCOUNTER → 2021-09-19 | Outpatient (CLI) | payer MEDICARE, MEDICAID | END | disposition home or self-care (01) | LOC: RESCLI 10:45 | PROVIDERS: ATTEND Internal Medicine | DX: E78.5 Hyperlipidemia, unspecified (principal); I63.9 Cerebral infarction, unspecified; E11.69 Type 2 diabetes mellitus with other specified complication; E03.9 Hypothyroidism, unspecified; J43.9 Emphysema, unspecified; Z79.899 Other long term (current) drug therapy; Z98.890 Other specified postprocedural states; Z88.8 Allergy status to other drugs, medicaments and biological substances ==

== ENCOUNTER → 2022-10-23 | Outpatient (CLI) | payer MEDICARE ==
[2022-10-23 11:18] LABS: ALKALINE PHOSPHATASE 117 U/L (46-116); BUN 15 mg/dl (9-23); CHLORIDE 102 mmol/L (98-107); CHOLESTEROL 184 mg/dL (<200); LDL CHOLESTEROL 125 mg/dL (9-159); POTASSIUM 4.1 mmol/L (3.4-5.1); SGPT/ALT 28 U/L (10-49); TOTAL PROTEIN 7.8 gm/dL (6.0-8.0); TRIGLYCERIDES 141 mg/dl (<150)
== END | disposition home or self-care (01) ==
LOC: RESCLI 01:13
PROVIDERS: Internal Medicine; ATTEND Internal Medicine
DX: Z23 Encounter for immunization (principal); I10 Essential (primary) hypertension; E11.9 Type 2 diabetes mellitus without complications; I25.10 Atherosclerotic heart disease of native coronary artery without angina pectoris; E03.9 Hypothyroidism, unspecified; E78.5 Hyperlipidemia, unspecified; K21.9 Gastro-esophageal reflux disease without esophagitis; J30.2 Other seasonal allergic rhinitis; M54.50 Low back pain, unspecified; N40.0 Benign prostatic hyperplasia without lower urinary tract symptoms; G47.00 Insomnia, unspecified; R06.02 Shortness of breath; Z95.1 Presence of aortocoronary bypass graft; Z94.4 Liver transplant status; Z00.00 Encounter for general adult medical examination without abnormal findings; Z87.891 Personal history of nicotine dependence; Z79.899 Other long term (current) drug therapy

== ENCOUNTER 2023-05-12 16:34 | Emergency (ER) | payer MEDICARE ==
[2023-05-12] MEDS ORDERED: OXYCODONE-ACET1 EAC3 PO (17:03)
[2023-05-12 17:32] LABS: BASO % 0.4 % (0.0-1.0); EOS % 0.3 % (1.0-4.0); HEMATOCRIT 50.2 % (42.0-52.0); LYMPH # 0.9 10*3/uL (1.3-4.4); LYMPH % 7.7 % (27.0-41.0); MEAN CELL VOLUME 83.1 fl (80.0-94.0); MEAN CORPUSCULAR HGB 28.5 pg (27.0-31.0); MEAN CORPUSCULAR HGB CONC 34.3 g/dl (33.0-37.0); MEAN PLATELET VOLUME 9.8 fl (9.6-12.3); MONO # 0.2 10*3/uL (0.1-1.0); MONO % 1.9 % (3.0-9.0); NEUT # 9.9 10*3/uL (2.3-7.9); NEUT % 88.9 % (47.0-73.0); PLATELET COUNT AUTOMATED 327 10*3/uL (130-400); RED BLOOD COUNT 6.04 10*6/uL (4.50-5.90); RED CELL DISTRI WIDTH 13.6 % (0-14.5); WHITE BLOOD COUNT 11.2 10*3/uL (4.8-10.8)
[2023-05-12 17:54] LABS: ALKALINE PHOSPHATASE 113 U/L (46-116); BUN 19 mg/dl (9-23); CHLORIDE 101 mmol/L (98-107); POTASSIUM 4.3 mmol/L (3.4-5.1); SGPT/ALT 63 U/L (10-49); TOTAL PROTEIN 7.6 gm/dL (6.0-8.0)
== END 2023-05-12 19:47 | disposition home or self-care (01) ==
LOC: ED 16:34
PROVIDERS: Nurse Practitioner Family
DX: R11.0 Nausea (principal); E86.0 Dehydration; R53.1 Weakness; R53.81 Other malaise; R19.7 Diarrhea, unspecified; F17.200 Nicotine dependence, unspecified, uncomplicated; Z88.8 Allergy status to other drugs, medicaments and biological substances; Z79.899 Other long term (current) drug therapy; Z79.82 Long term (current) use of aspirin

== ENCOUNTER 2023-07-31 00:28 | Emergency (ER) | payer MEDICARE ==
[~2023-07-31] VITALS: Wt 55.3 kg
[~2023-07-31 00:28] MED LIST changes: +OXYCODONE-ACET1 EAC3 PO
[2023-07-31 01:24] LABS: HEMATOCRIT 33.8 % (42.0-52.0); MEAN CELL VOLUME 89.9 fl (80.0-94.0); MEAN CORPUSCULAR HGB 31.6 pg (27.0-31.0); MEAN CORPUSCULAR HGB CONC 35.2 g/dl (33.0-37.0); MEAN PLATELET VOLUME 9.2 fl (9.6-12.3); PLATELET COUNT AUTOMATED 97 10*3/uL (130-400); RED BLOOD COUNT 3.76 10*6/uL (4.50-5.90); RED CELL DISTRI WIDTH 16.6 % (0-14.5); WHITE BLOOD COUNT 7.3 10*3/uL (4.8-10.8)
[2023-07-31 01:28] LABS: MANUAL DIFF REFLEX YES
[2023-07-31 01:37] LABS: ACT PARTIAL THROMBO TIME 22.2 SECONDS (20.0-32.1); INTERNATIONAL NORM RATIO 1.2 (2.0-3.5)
[2023-07-31 01:46] LABS: ALKALINE PHOSPHATASE 110 U/L (46-116); BUN 16 mg/dl (9-23); CHLORIDE 97 mmol/L (98-107); LIPASE 25 U/L (12-53); POTASSIUM 3.9 mmol/L (3.4-5.1); SGPT/ALT 30 U/L (5-49); TOTAL PROTEIN 6.7 gm/dL (6.0-8.0)
[2023-07-31 01:52] LABS: PLATELET SUFFICIENCY LOW (NORMAL); TOTAL CELLS COUNTED 100 #CELLS
[2023-08-01] MEDS ORDERED: LIPITOR40 MG PO (07:21)
[2023-08-01] MEDS ORDERED: IMODIUM A-D2 M2 PO (07:23)
== END 2023-07-31 05:09 | disposition left against medical advice (07) ==
LOC: ED 00:28
PROVIDERS: Internal Medicine
DX: R50.9 Fever, unspecified (principal); F17.200 Nicotine dependence, unspecified, uncomplicated; Z53.29 Procedure and treatment not carried out because of patient's decision for other reasons; Z88.8 Allergy status to other drugs, medicaments and biological substances; Z79.899 Other long term (current) drug therapy; Z79.82 Long term (current) use of aspirin

== ENCOUNTER → 2023-08-07 | Outpatient (CLI) | payer MEDICARE ==
[~2023-08-07] MED LIST changes: +CEFAZOLIN IV; +IMODIUM A-D2 M2 PO; +LIPITOR40 MG PO; +VITAMIN D350 MC2 PO
== END | disposition home or self-care (01) ==
LOC: PICC 01:37
PROVIDERS: ATTEND Family Medicine
DX: I38 Endocarditis, valve unspecified (principal); J18.9 Pneumonia, unspecified organism

== ENCOUNTER 2025-01-18 13:49 | Emergency (ER) | payer MEDICARE, MEDICAID ==
[~2025-01-18] VITALS: Ht 170.1 cm; Wt 55.3 kg
[~2025-01-18 13:49] MED LIST changes: +ERYTHROMYCIN OPH1 GM OPH; +FLUONAZOLE200 MG PO; +MAGIC MOUTH WASH PO
[2025-01-18] MEDS ORDERED: IOHEXOL 300 MG/ML 100 ML VIAL IV ONE (14:30)
[2025-01-18 14:41] LABS: BASO # 0.1 10*3/uL (0.0-0.1); BASO % 1.1 % (0.0-1.0); EOS # 0.3 10*3/uL (0.0-0.4); EOS % 3.4 % (1.0-4.0); HEMATOCRIT 45.5 % (42.0-52.0); MEAN CELL VOLUME 85.8 fl (80.0-94.0); MEAN CORPUSCULAR HGB 29.8 pg (27.0-31.0); MEAN CORPUSCULAR HGB CONC 34.7 g/dl (33.0-37.0); MEAN PLATELET VOLUME 9.2 fl (9.6-12.3); MONO # 0.7 10*3/uL (0.1-1.0); MONO % 8.6 % (3.0-9.0); NEUT # 5.8 10*3/uL (2.3-7.9); NEUT % 72.7 % (47.0-73.0); PLATELET COUNT AUTOMATED 240 10*3/uL (130-400); RED CELL DISTRI WIDTH 12.8 % (0-14.5); WHITE BLOOD COUNT 7.9 10*3/uL (4.8-10.8)
[2025-01-18 14:55] LABS: BUN 22 mg/dl (9-23); CHLORIDE 100 mmol/L (98-107); POTASSIUM 3.9 mmol/L (3.4-5.1)
[2025-01-18] MEDS ORDERED: METRONIDAZOLE500 M1 PO (16:24)
[2025-01-18] MEDS ORDERED: CIPRO500 MG PO (16:24)
[2025-01-18] MEDS ORDERED: Ciprofloxacin Hydrochloride 500 MG TAB PO ONE (16:25)
[2025-01-18] MEDS ORDERED: metroNIDAZOLE 500 MG TAB PO ONE (16:25)
== END 2025-01-18 16:43 | disposition home or self-care (01) ==
LOC: ED 13:49
PROVIDERS: Nurse Practitioner Family
DX: K57.32 Diverticulitis of large intestine without perforation or abscess without bleeding (principal); Z87.891 Personal history of nicotine dependence; Z96.652 Presence of left artificial knee joint; Z91.030 Bee allergy status; Z88.8 Allergy status to other drugs, medicaments and biological substances; Z79.899 Other long term (current) drug therapy; Z79.82 Long term (current) use of aspirin

== ENCOUNTER 2025-08-03 20:19 | Inpatient (IN) | payer MEDICARE, MEDICAID ==
[~2025-08-03] VITALS: Ht 171.4 cm; Wt 59.2 kg
[~2025-08-03 20:19] MED LIST changes: +CIPRO500 MG PO; +METRONIDAZOLE500 M1 PO
[2025-08-03 20:50] VITALS: BP 154/111
[2025-08-03] MEDS ORDERED: Ondansetron Hydrochloride 4 MG/2 ML VIAL IV ONE (21:10)
[2025-08-03] MEDS ORDERED: SODIUM CHLORIDE 0.9% 1,000 ML IV ONE (21:10)
[2025-08-03 21:36] LABS: MEAN CELL VOLUME 86.3 fl (80.0-94.0); MEAN CORPUSCULAR HGB 28.8 pg (27.0-31.0); MEAN PLATELET VOLUME 9.2 fl (9.6-12.3); NUCLEATED RED BLOOD CELL 0.0 % (0.0-0.0); NUCLEATED RED BLOOD CELL 0.0 10*3/uL (0.0-0.0); PLATELET COUNT AUTOMATED 154 10*3/uL (130-400); RED CELL DISTRI WIDTH 14.5 % (0-14.5)
[2025-08-03 21:37] LABS: MANUAL DIFF REFLEX YES
[2025-08-03 21:58] LABS: BUN 23 mg/dl (9-23); CPK 93 U/L (34-171)
[2025-08-03 22:02] LABS: BASOPHILS 1 % (0-1); PLATELET SUFFICIENCY NORMAL (NORMAL)
[2025-08-03] MEDS ORDERED: ASPIRIN 325 MG ENTERIC COATED PO ONE (22:10)
[2025-08-03] MEDS ORDERED: Levothyroxine Sodium 100 MCG IV ONE (22:10)
[2025-08-03] MEDS ORDERED: AZITHROMYCIN 250 ML IV ONE (22:10)
[2025-08-03] MEDS ORDERED: Acetaminophen/Hydrocodone 5 MG/325 MG TABLET PO PRN (23:35)
[2025-08-03] MEDS ORDERED: ACETAMINOPHEN 325 MG TAB PO PRN (23:35)
[2025-08-03] MEDS ORDERED: Ondansetron Hydrochloride 4 MG/2 ML VIAL IV PRN (23:35)
[2025-08-03] MEDS ORDERED: BISACODYL 5 MG TAB PO PRN (23:35)
[2025-08-03] MEDS ORDERED: ATORVASTATIN CALCIUM 80 MG TAB PO SCH (23:55)
[2025-08-04] VITALS (9 sets, daily range): BP systolic 43–148; BP diastolic 29–98
[2025-08-04] MEDS ORDERED: IOHEXOL 350 MG/ML 100 ML VIAL IV ONE ×2 (01:10→01:36)
[2025-08-04] MEDS ORDERED: SODIUM CHLORIDE 0.9% 100 ML BAG IV ONE (01:10)
[2025-08-04] MEDS ORDERED: SODIUM CHLORIDE 0.9% 1,000 ML IV ONE ×2 (01:19→02:35)
[2025-08-04] MEDS ORDERED: SODIUM CHLORIDE 0.9% 100 ML IV ONE (01:36)
[2025-08-04 03:10] LABS: MEAN CELL VOLUME 87.5 fl (80.0-94.0); MEAN CORPUSCULAR HGB 28.9 pg (27.0-31.0); MEAN PLATELET VOLUME 9.7 fl (9.6-12.3); NUCLEATED RED BLOOD CELL 0.0 % (0.0-0.0); NUCLEATED RED BLOOD CELL 0.0 10*3/uL (0.0-0.0); PLATELET COUNT AUTOMATED 130 10*3/uL (130-400); RED CELL DISTRI WIDTH 14.4 % (0-14.5)
[2025-08-04 03:11] LABS: MANUAL DIFF REFLEX YES
[2025-08-04 03:21] LABS: ACT PARTIAL THROMBO TIME 24.9 SECONDS (20.0-32.1)
[2025-08-04 03:34] LABS: BUN 24 mg/dl (9-23); FREE T4 1.29 ng/dl (0.89-1.76); LDL CHOLESTEROL 124 mg/dL (9-159); SGPT/ALT 235 U/L (5-49); VITAMIN D, 25-HYDROXY 28.3 ng/mL (30-100)
[2025-08-04] MEDS ORDERED: HEPARIN SODIUM 250 ML IV SCH ×2 (03:35→07:25)
[2025-08-04 03:48] LABS: BASOPHILS 1 % (0-1); PLATELET SUFFICIENCY NORMAL (NORMAL)
[2025-08-04] MEDS ORDERED: DEXTROSE 50% 25 GM/50 ML VIAL IV ONE (04:40)
[2025-08-04] MEDS ORDERED: INSULIN REGULAR, HUMAN 1 UNIT/0.01 ML IV ONE (04:40)
[2025-08-04] MEDS ORDERED: DEXTROSE 50% 25 GM/50 ML VIAL IV PRN (04:45)
[2025-08-04] MEDS ORDERED: Regadenoson 0.4 MG/5 ML SYR IV ONE (06:34)
[2025-08-04] MEDS ORDERED: INSULIN LISPRO 1 UNIT/0.01 ML SQ SCH (07:30)
[2025-08-04] MEDS ORDERED: LORazepam 0.5 MG TAB PO ONE (09:05)
[2025-08-04] MEDS ORDERED: Cholecalciferol 2,000 UNIT TABLET (50 MCG) PO SCH (10:00)
[2025-08-04] MEDS ORDERED: ASPIRIN, CHEWABLE 81 MG TAB PO SCH (10:00)
[2025-08-04 13:11] LABS: BUN 22 mg/dl (9-23)
[2025-08-04] MEDS ORDERED: GADOTERATE MEGLUMINE 7.5 MMOL/15 ML VIAL IV ONE (15:28)
[2025-08-04] MEDS ORDERED: Ampicillin Sodium/Sulbactam 3 GM in SODIUM CHLORIDE 0.9% 100 ML IV SCH (18:00)
[2025-08-04] MEDS ORDERED: Vancomycin Hydrochloride 1,000 MG in SODIUM CHLORIDE 0.9% 250 ML IV SCH (20:00)
[2025-08-04] MEDS ORDERED: DECADRON4 MG PO (20:35)
[2025-08-04] MEDS ORDERED: VANCOMYCIN1 GM/2502 IV (20:40)
[2025-08-04] MEDS ORDERED: AMPICILLIN-SULB3 GM IV (20:40)
[2025-08-04] MEDS ORDERED: AZITHROMYCIN 250 ML IV SCH (21:00)
[2025-08-04] MEDS ORDERED: Dexamethasone Sodium Phospha 4 MG IV SCH (22:00)
[2025-08-04] MEDS ORDERED: Ranolazine 500 MG TAB ER PO SCH (22:00)
[2025-08-04] MEDS ORDERED: Dexamethasone Sodium Phospha 4 MG/ML VIAL IV SCH (22:00)
[2025-08-04] MEDS ORDERED: APIXABAN 5 MG TAB PO SCH (22:00)
[2025-08-05] MEDS ORDERED: ISOSORBIDE MONONITRATE 30 MG TAB PO SCH (10:00)
[2025-08-11] MEDS ORDERED: APIXABAN 5 MG TAB PO SCH (22:00)
== END 2025-08-04 22:55 | disposition short-term general hospital (02) | DRG 175 ==
LOC: ED 20:19 → 4E 22:39 → EDHOLD 22:39 → 4E 23:05
PROVIDERS: Emergency Medicine; Internal Medicine; ADMIT Internal Medicine; ATTEND Internal Medicine
DX: I26.99 Other pulmonary embolism without acute cor pulmonale (principal); I21.A1 Myocardial infarction type 2; J18.9 Pneumonia, unspecified organism; E87.1 Hypo-osmolality and hyponatremia; E87.20 Acidosis, unspecified; E03.9 Hypothyroidism, unspecified; Z20.822 Contact with and (suspected) exposure to COVID-19; R56.9 Unspecified convulsions; E87.5 Hyperkalemia; R74.01 Elevation of levels of liver transaminase levels; E11.65 Type 2 diabetes mellitus with hyperglycemia; I49.9 Cardiac arrhythmia, unspecified; I10 Essential (primary) hypertension; T78.49XA Other allergy, initial encounter; E78.5 Hyperlipidemia, unspecified; G90.9 Disorder of the autonomic nervous system, unspecified; Z96.652 Presence of left artificial knee joint; Z88.8 Allergy status to other drugs, medicaments and biological substances; Z91.09 Other allergy status, other than to drugs and biological substances; Z79.899 Other long term (current) drug therapy; Z79.01 Long term (current) use of anticoagulants; Z79.2 Long term (current) use of antibiotics; Z82.49 Family history of ischemic heart disease and other diseases of the circulatory system; Z90.49 Acquired absence of other specified parts of digestive tract; Z83.3 Family history of diabetes mellitus; Z86.73 Personal history of transient ischemic attack (TIA), and cerebral infarction without residual deficits; X58.XXXA Exposure to other specified factors, initial encounter

== ENCOUNTER 2025-09-21 16:49 | Emergency (ER) | payer MEDICARE ==
[~2025-09-21] VITALS: Ht 170.1 cm; Wt 48.1 kg
[2025-09-21 19:00] LABS: BASO # 0.1 10*3/uL (0.0-0.1); BASO % 1.2 % (0.0-1.0); EOS # 0.3 10*3/uL (0.0-0.4); EOS % 2.6 % (1.0-4.0); MEAN CELL VOLUME 90.0 fl (80.0-94.0); MEAN CORPUSCULAR HGB 30.0 pg (27.0-31.0); MEAN PLATELET VOLUME 9.2 fl (9.6-12.3); MONO # 0.6 10*3/uL (0.1-1.0); MONO % 6.5 % (3.0-9.0); NEUT # 7.6 10*3/uL (2.3-7.9); NEUT % 79.0 % (47.0-73.0); NUCLEATED RED BLOOD CELL 0.0 % (0.0-0.0); NUCLEATED RED BLOOD CELL 0.0 10*3/uL (0.0-0.0); PLATELET COUNT AUTOMATED 281 10*3/uL (130-400); RED CELL DISTRI WIDTH 16.2 % (0-14.5)
[2025-09-21 19:14] LABS: BUN 25 mg/dl (9-23)
[2025-09-21] MEDS ORDERED: IOHEXOL 350 MG/ML 100 ML VIAL IV ONE ×2 (19:20→19:49)
[2025-09-21] MEDS ORDERED: SODIUM CHLORIDE 0.9% 100 ML BAG IV ONE (19:20)
[2025-09-21] MEDS ORDERED: SODIUM CHLORIDE 0.9% 100 ML IV ONE (19:49)
== END 2025-09-21 21:27 | disposition home or self-care (01) ==
LOC: ED 16:49
PROVIDERS: Student in an Organized Health Care Education/Training Program
DX: I73.9 Peripheral vascular disease, unspecified (principal); I10 Essential (primary) hypertension; E78.00 Pure hypercholesterolemia, unspecified; Z96.652 Presence of left artificial knee joint; Z91.030 Bee allergy status; Z88.8 Allergy status to other drugs, medicaments and biological substances

== ENCOUNTER → 2025-09-21 | Outpatient (CLI) | payer MEDICARE ==
[~2025-09-21] MED LIST changes: +AMIODARONE HYD200 MG PO; +AMLODIPINE BESY10 MG PO; +AMPICILLIN-SULB3 GM IV; +ASPIRIN CHEWABL81 MG PO; +BUMETANIDE2 MG PO; +BUSPAR5 MG PO; +CARVEDILOL25 MG PO; +CLOPIDOGREL75 MG PO; +COLCHICINE0.6 M2 PO; +DECADRON4 MG PO; +DOXEPIN25 MG PO; +DOXYCYCLINE HY100 M3 PO; +ELIQUIS5 M1 PO; +IMDUR SA30 MG PO; +KEPPRA500 MG PO; +LASIX40 MG PO; +LEVOTHYROXINE50 MCG PO; +LEVOTHYROXINE75 MCG PO; +MELATONIN10 M2 PO; +METOPROLOL SUCC25 M2 PO; +Metolazone5 MG PO; +NEURONTIN300 MG PO; +OXYBUTYNIN5 MG PO; +POTASSIUM CHLO10 MEQ PO; +PROTONIX40 MG PO; +SENNA8.6 MG PO; +TAB-A-VITE TA400 MCG PO; +VANCOMYCIN1 GM/2502 IV; +ZETIA10 MG PO
== END | disposition home or self-care (01) ==
LOC: RESCLI 02:01
PROVIDERS: ATTEND Internal Medicine
DX: R29.91 Unspecified symptoms and signs involving the musculoskeletal system (principal); I10 Essential (primary) hypertension; E78.5 Hyperlipidemia, unspecified; K21.9 Gastro-esophageal reflux disease without esophagitis; Z98.890 Other specified postprocedural states; Z79.82 Long term (current) use of aspirin; Z79.01 Long term (current) use of anticoagulants; Z88.8 Allergy status to other drugs, medicaments and biological substances; Z79.899 Other long term (current) drug therapy

== ENCOUNTER → 2025-09-23 | Outpatient (CLI) | payer MEDICARE | END | disposition home or self-care (01) | LOC: PICC 09-16 10:00 | PROVIDERS: ATTEND Hospitalist | DX: G04.90 Encephalitis and encephalomyelitis, unspecified (principal) ==